=== PATIENT | female | born 1960 ===

== ENCOUNTER → 2018-03-03 11:43 | Outpatient (CLI) | payer SELFPAY ==
[2018-03-03 18:00] LABS: Urine N gonorrhoeae NOT DETECTED
[2018-03-03 18:15] LABS: Urine Chlamydia NOT DETECTED
== END ==
PROVIDERS: Visit Provider Physician Assistant
DX: B96.89 Other specified bacterial agents as the cause of diseases classified elsewhere (principal); N76.0 Acute vaginitis
CPT/HCPCS: 87491; 87591